=== PATIENT | female | born 2000 | race Caucasian/White ===

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

== ENCOUNTER → 2022-04-21 07:23 | Observation (INO) ==
[~2022-04-21 07:23] MED LIST changes: -*HR* Nalbuphine 10 MG/ML AMPUL IV PRN; +Azithromycin 250 MG TABLET PO ONE; -Azithromycin 500 MG in 0.9 % Sodium Chloride 250 ML IVPB PRN; -Famotidine 20 MG/2 ML VIAL IVP PRN; -Lidocaine 1% 20 ML MDV INFILT PRN; -Metoclopramide 10 MG/2 ML VIAL IVP PRN; -Naloxone 0.4 MG/ML INJ IVP PRN; -Ondansetron 4 MG/2 ML VIAL IVP PRN; +Ondansetron ODT 4 MG TAB.RAPDIS SL ONE
== END | disposition home or self-care (01) ==
LOC: 1NENULAB
PROVIDERS: ADMIT Student in an Organized Health Care Education/Training Program; ATTEND Student in an Organized Health Care Education/Training Program

== ENCOUNTER 2022-05-30 14:45 | Inpatient (IN) ==
[2022-05-30] MEDS ORDERED: Naloxone 0.4 MG/ML INJ IVP PRN (14:52)
[2022-05-30] MEDS ORDERED: Ondansetron 4 MG/2 ML VIAL IVP PRN (14:52)
[2022-05-30] MEDS ORDERED: Metoclopramide 10 MG/2 ML VIAL IVP PRN (14:52)
[2022-05-30] MEDS ORDERED: Lidocaine 1% 20 ML MDV INFILT PRN (14:52)
[2022-05-30] MEDS ORDERED: *HR* Nalbuphine 10 MG/ML AMPUL IV PRN (14:52)
[2022-05-30] MEDS ORDERED: Penicillin G Potassium 5,000,000 UNIT in 0.9 % Sodium Chloride Mini Bag 100 ML IVPB ONE (14:52)
[2022-05-30] MEDS ORDERED: Famotidine 20 MG/2 ML VIAL IVP PRN (14:52)
[2022-05-30] MEDS ORDERED: Azithromycin 500 MG in 0.9 % Sodium Chloride 250 ML IVPB PRN (14:52)
[2022-05-30] MEDS ORDERED: Oxytocin 30 UNIT/503 ML BAG IVC SCH ×2 (15:00→21:48)
[2022-05-30] MEDS ORDERED: Ringers Solution, Lactated 1,000 ML IVC SCH (15:00)
[2022-05-30] MEDS ORDERED: Betamethasone Acet/SodPhos 30 MG/5 ML VIAL IM SCH (15:30)
[2022-05-30 15:34] LABS: Basophils % 0.3 %; Eosinophils % 0.1 %; Hematocrit 37.8 % (35.3-44.9); Hemoglobin 12.5 g/dL (11.5-15.4); Immature Granulocytes % 0.6 % (0-4); Lymphocytes # 2.2 K/mcL (0.6-4.6); Lymphocytes % 15.6 %; Mean Corpuscular HGB Conc 33.1 g/dL (31.6-35.5); Mean Corpuscular Hemoglobin 29.1 pg (28.0-33.3); Mean Corpuscular Volume 88.1 fL (83.0-100.0); Monocytes # 0.8 K/mcL (0.0-1.3); Monocytes % 5.3 %; Neutrophils # 11.1 K/mcL (1.6-8.9); Platelet Count 264 K/mcL (140-400); Red Blood Count 4.29 M/mcL (3.82-4.97); Red Cell Distribution Width 12.4 % (11.5-14.5); Segmented Neutrophils % 78.1 %; White Blood Count 14.3 K/mcL (4.3-11.1)
[2022-05-30 15:36] LABS: Bacteria,Urine Few per hpf (None-Few); Bilirubin,Urine Negative (Negative); Blood,Urine Trace (Negative); Clarity,Urine Clear (Clear); Color,Urine Light-Yellow (Yellow); Glucose,Urine (UA) Normal (Normal); Ketones,Urine 20 mg/dL (Negative); Leukocyte Esterase,Urine Negative (Negative); Mucus,Urine Few per lpf (None-Few); Nitrite,Urine Negative (Negative); PH,Urine 7.5 pH Units (5.0-8.0); Protein,Urine Negative (Neg-Trace); Specific Gravity,Urine 1.011 (1.010-1.025); Squamous Epithelial Cell,Urine Few per hpf (None-Few); Urobilinogen,Urine Normal (Normal); WBC,Urine 0-3 per hpf (0-3)
[2022-05-30 15:47] LABS: Amphetamine Screen,Urine Negative ng/mL (Cutoff=1000); Barbiturate Screen,Urine Negative ng/mL (Cutoff=200); Benzodiazepines Screen,Urine Negative ng/mL (Cutoff=200); Cannabinoid Screen,Urine Positive ng/mL (Cutoff = 50); Cocaine Screen,Urine Negative ng/mL (Cutoff= 300); Opiate Screen,Urine Negative ng/mL (Cutoff=300); Phencyclidine Screen,Urine Negative ng/mL (Cutoff=25)
[2022-05-30] MEDS ORDERED: *HR* FentaNYL (PF) 100 MCG/2 ML VIAL EP ONE (16:19)
[2022-05-30] MEDS ORDERED: Ropivacaine/PF 0.2% 20 ML VIAL EP ONE (16:19)
[2022-05-30] MEDS ORDERED: EPHEDrine 50 MG/ML VIAL IVP PRN (16:19)
[2022-05-30] MEDS ORDERED: Epidural Premix (fent/bupiv) 110 ML EP SCH (16:30)
[2022-05-30] MEDS ORDERED: *HR* FentaNYL (PF) 100 MCG/2 ML VIAL ONE (18:38)
[2022-05-30] MEDS ORDERED: Ropivacaine/PF 0.2% 20 ML VIAL ONE (18:38)
[2022-05-30] MEDS ORDERED: Penicillin G Potassium 2,500,000 UNIT/105 ML MLS IVPB SCH (19:00)
[2022-05-30] MEDS ORDERED: Ibuprofen 600 MG TABLET PO ONE (19:58)
[2022-05-30] MEDS ORDERED: Measles/Mumps/Rubella Vacc 0.5 ML VIAL SQ PRN (21:48)
[2022-05-30] MEDS ORDERED: Ondansetron ODT 4 MG TAB.RAPDIS SL PRN (21:48)
[2022-05-30] MEDS ORDERED: Rho Immune Globulin 1,500 UNIT SYRINGE IM PRN (21:48)
[2022-05-30] MEDS ORDERED: Benzocaine/Menthol 56 GM AEROSOL SPRAY TP PRN (21:48)
[2022-05-30] MEDS ORDERED: Acetaminophen 325 MG TABLET PO SCH (21:48)
[2022-05-30] MEDS ORDERED: OXYTOCIN/RINGERS LACTATE 10 UNIT/166.6 ML BAG IVC ONE (21:48)
[2022-05-30] MEDS ORDERED: Lanolin 7 G OINT...G. TP PRN (21:48)
[2022-05-31] MEDS ORDERED: Ibuprofen 600 MG TABLET PO SCH
[2022-05-31 05:17] VITALS: TEMP 97.8
[2022-05-31 05:18] LABS: Basophils % 0.1 %; Hematocrit 35.7 % (35.3-44.9); Hemoglobin 11.8 g/dL (11.5-15.4); Immature Granulocytes % 0.5 % (0-4); Lymphocytes # 1.3 K/mcL (0.6-4.6); Lymphocytes % 7.2 %; Mean Corpuscular HGB Conc 33.1 g/dL (31.6-35.5); Mean Corpuscular Hemoglobin 28.7 pg (28.0-33.3); Mean Corpuscular Volume 86.9 fL (83.0-100.0); Mean Platelet Volume 10.8 fL (9.4-12.4); Monocytes # 0.5 K/mcL (0.0-1.3); Monocytes % 2.5 %; Neutrophils # 16.6 K/mcL (1.6-8.9); Platelet Count 250 K/mcL (140-400); Red Blood Count 4.11 M/mcL (3.82-4.97); Red Cell Distribution Width 12.1 % (11.5-14.5); Segmented Neutrophils % 89.7 %; White Blood Count 18.5 K/mcL (4.3-11.1)
[2022-05-31 06:42] VITALS: BP 91/56; PULSE 62; O2SAT 95
[2022-05-31] MEDS ORDERED: NON-FORMULARY MEDICATION 1 EACH EACH (Prenat 115/Iron Fum/Folic/Dss [Prenatal 19 Tablet] 1 PO SCH (09:00)
[2022-05-31] MEDS ORDERED: Prenatal Vit/FA 1 EACH TABLET PO SCH (09:00)
== END 2022-05-31 12:21 | disposition home or self-care (01) | DRG 560 ==
LOC: 1NENULAB → 1NENUOBS 21:46
PROVIDERS: ADMIT Advanced Practice Midwife; ATTEND Advanced Practice Midwife